=== PATIENT | female | born 1965 | race Asian ===

== ENCOUNTER 2021-10-16 07:37 | Outpatient (CLI) | payer BC, SELFPAY ==
--- NOTE | ~2021-10-16 | MM_ITS ---
EXAMINATION: MM screening [place] [facility] w [facility]ar HISTORY: Screening mammogram TECHNIQUE: Craniocaudal and mediolateral oblique 3-D tomosynthesis images were obtained and synthetic 2-D images were generated. CAD analysis was submitted and interpreted. COMPARISON: 01/19/2018, 01/29/2015, 09/05/2012 BREAST PARENCHYMAL COMPOSITION: There are scattered areas of fibroglandular density. FINDINGS: There is no suspicious mass, calcification, or architectural distortion to suggest malignan cy in either breast. There has been no suspicious interval change. IMPRESSION: 1. No mammographic evidence of malignancy. 2. Recommend routine screening mammography in one year. BI-RADS Category 1: Negative Reviewed, dictated and finalized at location A.
--- NOTE | ~2021-10-16 | DEXA_ITS ---
Bone Density Report Name: SHANTA GARG Age: 55 Sex: Female Ethnicity: Date of : 1965 Indication: postmenopausal; screening for osteoporosis; parental hip fracture; Referring Provider: MAHSA MELO Study: Bone densitometry was performed. Exam Date: October 16, 2021 Accession number: [id number] Bone Density: Region BMD T-score Z-score Classification AP Spine(L1-L4) 0.724 -2.9 -1.7 Osteoporosis Femoral Neck (Left) 0.560 -2.6 -1.5 Osteoporosis Total Hip (Left) 0.715 -1.9 -1.1 Osteopenia Femoral Neck (Right) 0.557 -2.6 -1.5 Osteoporosis Total Hip (Right) 0.733 -1.7 -0.9 Osteopenia Total Hip Mean 0.724 -1.8 -1.0 Osteopenia World Health Organization criteria for BMD impression classify patients as: Normal (T-score at or above -1.0), Osteopenia (T-score between -1.0 and -2.5), or Osteoporosis (T-score at or below -2.5). 10-year Fracture Risk: FRAX not reported because: Some T-score for Spine Total or Hip Total or Femoral Neck at or below -2.5 Clinical Information Provided by Patient: Parent has had a hip fracture Patient maximum height was 60 Menopause Age: 51 Drinks caffeinated beverages Onset of menses at age 15 Number of children 3 Impression: The patient has osteoporosis, based on the Total Spine T-score. The patient has risk factors, including: parental hip fracture. Discussion: INCREASED RISK OF FRACTURE. BONE DENSITY IS UNDESIRABLY LOW AT ONE OR MORE SKELETAL SITES, CONSISTENT WITH POSTMENOPAUSAL OSTEOPOROSIS. This patient's lowest T-score meets the World Health Organization's (WHO) criteria for osteoporosis at one or more sites (T-score -2.5 or below). In untreated patients, the risk of osteoporotic fracture increases approximately two-fold for each 1.0 SD decrease in T-score. Low bone density is not the only risk factor for fracture; also consider factors such as patient's age, frailty or poor health, risk of falling, risk of injury, previous osteoporotic fracture, family history of osteoporosis, cigarette smoking, low body weight, etc. Not everyone with low bone mineral density has osteoporosis; osteomalacia and other metabolic bone disorders should also be considered. Patients who have osteoporosis should be evaluated for specific diseases and conditions (secondary causes) that may cause or contribute to bone loss. The [place] [employer]ocrinologists (AACE) and National Osteoporosis Foundation (NOF) recommend pharmacologic intervention for all postmenopausal women whose T-score is in this range. The patient should follow a healthful lifestyle (good nutrition with adequate calcium and vitamin D, and appropriate weight-bearing exercise). Follow-Up: Consider a repeat BMD and Vertebral Fracture Assessment (VFA) exam in 2 years or sooner if medically nec
== END 2021-10-16 07:38 | disposition home or self-care (01) ==
PROVIDERS: PCP Family Medicine; Visit Provider Family Medicine
DX: Z12.31 Encounter for screening mammogram for malignant neoplasm of breast (principal); Z78.0 Asymptomatic menopausal state; Z82.62 Family history of osteoporosis; M81.0 Age-related osteoporosis without current pathological fracture; M85.852 Other specified disorders of bone density and structure, left thigh; M85.851 Other specified disorders of bone density and structure, right thigh
CPT/HCPCS: 77063; 77067; 77080

== ENCOUNTER 2022-08-20 12:31 | Outpatient (CLI) | payer BC, SELFPAY ==
[2022-08-20 16:40] LABS: Basophils Absolute Auto 0.1 K/mm3 (0.0-0.1); Basophils Percent Auto 1.3 % (0.2-1.2); Eosinophils Absolute Auto 0.1 K/mm3 (0-0.3); Hematocrit 44.1 % (37.0-47.0); Hemoglobin 14.4 g/dL (12.0-15.0); Immature Granulocyte Absolute 0.01 K/mm3 (0.00-0.031); Immature Granulocyte Percent A 0.2 % (0-0.5); Lymphocytes Absolute Auto 1.73 K/mm3 (0.9-3.2); Lymphocytes Percent Auto 38.1 % (18.3-44.2); Mean Corpuscular HGB Conc 32.7 g/dl (32-36); Mean Corpuscular Hemoglobin 30.8 pg (26-34); Mean Corpuscular Volume 94.2 fl (80-100); Mean Platelet Volume 10.3 fl (7.4-10.4); Monocytes Absolute Auto 0.3 K/mm3 (0.1-0.6); Monocytes Percent Auto 6.2 % (2.6-8.5); Neutrophils Absolute Auto 2.4 K/mm3 (1.3-6.7); Neutrophils Percent Auto 52.2 % (45.5-73.1); Platelet Count Result 273 k/mm3 (150-375); Red Blood Count 4.68 M/mm3 (4.2-5.4); Red Cell Distribution Width 12.1 % (11.5-14.5); White Blood Count 4.5 K/mm3 (4.5-10.0)
[2022-08-20 16:50] LABS: Anion Gap 6 mmol/L (8-16); Blood Urea Nitrogen 19 mg/dL (7-17); Calcium 8.6 mg/dL (8.4-10.2); Carbon Dioxide 30 mmol/L (22-30); Chloride 103 mmol/L (98-107); Cholesterol 263 mg/dL (0-200); Estimated Glomerular Filt Rate > 60; Glucose 87 mg/dL (65-110); HDL Direct 105 mg/dL; Potassium 4.3 mmol/L (3.4-5.0); Sodium 139 mmol/L (137-145); Triglycerides 108 mg/dL (<150)
[2022-08-20 17:00] LABS: LDL Cholesterol Direct 118 mg/dL
== END 2022-08-20 12:32 | disposition home or self-care (01) ==
LOC: ANHGOSHLAB 12:32
PROVIDERS: PCP Family Medicine; Visit Provider Nurse Practitioner Family
DX: E78.1 Pure hyperglyceridemia (principal); I10 Essential (primary) hypertension
CPT/HCPCS: 36415; 80048; 80061; 84443; 85025

== ENCOUNTER 2023-09-02 11:31 | Outpatient (CLI) | payer BC, SELFPAY ==
[2023-09-02 12:44] LABS: Basophils Percent Auto 0.6 % (0.2-1.2); Eosinophils Absolute Auto 0.1 K/mm3 (0-0.3); Eosinophils Percent Auto 1.1 % (0-4.4); Hematocrit 43.8 % (37.0-47.0); Hemoglobin 14.5 g/dL (12.0-15.0); Immature Granulocyte Absolute 0.02 K/mm3 (0.00-0.031); Immature Granulocyte Percent A 0.3 % (0-0.5); Lymphocytes Percent Auto 27.2 % (18.3-44.2); Mean Corpuscular HGB Conc 33.1 g/dl (32-36); Mean Corpuscular Hemoglobin 30.9 pg (26-34); Mean Corpuscular Volume 93.2 fl (80-100); Mean Platelet Volume 9.4 fl (7.4-10.4); Monocytes Absolute Auto 0.3 K/mm3 (0.1-0.6); Monocytes Percent Auto 4.7 % (2.6-8.5); Neutrophils Absolute Auto 4.4 K/mm3 (1.3-6.7); Neutrophils Percent Auto 66.1 % (45.5-73.1); Platelet Count Result 297 k/mm3 (150-375); Red Cell Distribution Width 11.9 % (11.5-14.5); White Blood Count 6.6 K/mm3 (4.5-10.0)
[2023-09-02 13:12] LABS: LDL Cholesterol Direct 136 mg/dL
[2023-09-02 13:13] LABS: Vitamin D 25 Hydroxy 55.5 ng/mL
[2023-09-02 13:14] LABS: Alanine Aminotransferase 26 U/L (6-35); Albumin Level 5.1 g/dL (3.5-5.1); Alkaline Phosphatase 94 U/L (38-126); Anion Gap 7 mmol/L (4-12); Aspartate Amino Transferase 63 U/L (14-36); Blood Urea Nitrogen 17 mg/dL (7-17); Calcium 8.8 mg/dL (8.4-10.2); Carbon Dioxide 30 mmol/L (22-30); Chloride 104 mmol/L (98-107); Cholesterol 280 mg/dL (0-200); Estimated Glomerular Filt Rate > 60; Glucose 93 mg/dL (65-110); HDL Direct 84 mg/dL; Potassium 4.3 mmol/L (3.4-5.0); Sodium 141 mmol/L (137-145); Triglycerides 206 mg/dL (<150)
== END 2023-09-02 11:32 | disposition home or self-care (01) ==
LOC: ANHGOSHLAB 11:32
PROVIDERS: PCP Family Medicine; Visit Provider Nurse Practitioner Family
DX: E55.9 Vitamin D deficiency, unspecified (principal); M81.0 Age-related osteoporosis without current pathological fracture; E78.1 Pure hyperglyceridemia; I10 Essential (primary) hypertension
CPT/HCPCS: 36415; 80053; 80061; 82306; 84443; 85025

== ENCOUNTER 2023-11-16 14:04 | Outpatient (CLI) | payer BC, SELFPAY ==
--- NOTE | ~2023-11-16 | DEXA_ITS ---
Bone Density Report Name: SHANTA GARG Age: 57 Sex: Female Ethnicity: Date of : 1965 Indication: postmenopausal osteoporosis; anorexia or bulimia; asthma or emphysema; hysterectomy; Referring Provider: LEN PHAN Study: Bone densitometry was performed. Exam Date: November 16, 2023 Accession number: [id number] Bone Density: Region BMD T-score Z-score Classification AP Spine(L1-L4) 0.800 -2.2 -0.9 Osteopenia Femoral Neck (Left) 0.535 -2.8 -1.6 Osteoporosis Total Hip (Left) 0.702 -2.0 -1.1 Osteopenia Femoral Neck (Right) 0.555 -2.6 -1.4 Osteoporosis Total Hip (Right) 0.722 -1.8 -0.9 Osteopenia Total Hip Mean 0.712 -1.9 -1.0 Osteopenia World Health Organization criteria for BMD impression classify patients as: Normal (T-score at or above -1.0), Osteopenia (T-score between -1.0 and -2.5), or Osteoporosis (T-score at or below -2.5). 10-year Fracture Risk: FRAX not reported because: Some T-score for Spine Total or Hip Total or Femoral Neck at or below -2.5 Previous Exams: Region Exam Age BMD T-score BMD Change BMD Change Date g/cm2 vs Baseline vs Previous AP Spine (L1-L4) 11/16/2023 57 0.800 -2.2 0.076 (10.4%)* 0.076 (10.4%)* 10/16/2021 55 0.724 -2.9 Total Hip(Left) 11/16/2023 57 0.702 -2.0 -0.013 (-1.8%) -0.013 (-1.8%) 10/16/2021 55 0.715 -1.9 Total Hip(Right) 11/16/2023 57 0.722 -1.8 -0.011 (-1.6%) -0.011 (-1.6%) 10/16/2021 55 0.733 -1.7 *Denotes significance at 95% confidence level, LSC for AP Spine = 0.022 g/cm2, LSC for Total Hip = 0.027 g/cm2 Clinical Information Provided by Patient: Has used the following medications: Fosamax (i.e. alendronate), Vitamin D, Calcium Has the following medical conditions: Anorexia or Bulimia, Asthma or Emphysema, Hysterectomy Patient maximum height was 60.0 Menopause Age: 51 Drinks caffeinated beverages Onset of menses at age 14 Number of children 3 Impression: The patient has osteoporosis, based on the Left Femoral Neck T-score. No significant bone loss was observed. Discussion: INCREASED RISK OF FRACTURE. BONE DENSITY IS UNDESIRABLY LOW AT ONE OR MORE SKELETAL SITES, CONSISTENT WITH POSTMENOPAUSAL OSTEOPOROSIS. This patient's lowest T-score meets the World Health Organization's (WHO) criteria for osteoporosis at one or more sites (T-score -2.5 or below). In untreated patients, the risk of osteoporotic fracture increases approximately two-fold for each
== END 2023-11-16 14:05 | disposition home or self-care (01) ==
LOC: ANHIMG 14:06
PROVIDERS: PCP Family Medicine; Visit Provider Nurse Practitioner Family
DX: M81.0 Age-related osteoporosis without current pathological fracture (principal); M85.88 Other specified disorders of bone density and structure, other site; M85.852 Other specified disorders of bone density and structure, left thigh; M85.851 Other specified disorders of bone density and structure, right thigh
CPT/HCPCS: 77080

== ENCOUNTER 2023-12-01 07:15 | Outpatient (CLI) | payer BC, SELFPAY ==
--- NOTE | ~2023-12-01 | MM_ITS ---
EXAMINATION: MM screening [facility] w [facility] HISTORY: Screening TECHNIQUE: Craniocaudal and mediolateral oblique 3-D tomosynthesis images were obtained and synthetic 2-D images were generated. CAD analysis was submitted and interpreted. COMPARISON: Comparison to multiple prior studies sequentially, with oldest reviewed study dated 01/06. BREAST PARENCHYMAL COMPOSITION: Dense: The breasts are heterogeneously dense, which may obscure small masses FINDINGS: There is no evidence of suspicious mass, calcification, or architectural distortion to sugg est malignancy in either breast. There has been no suspicious interval change. IMPRESSION: 1. No mammographic evidence of malignancy. 2. Recommend routine screening mammography in one year. BI-RADS Category 1: Negative Reviewed, dictated and finalized at location B.
== END 2023-12-01 07:16 | disposition home or self-care (01) ==
LOC: ANHIMG 07:16
PROVIDERS: PCP Family Medicine; Visit Provider Family Medicine
DX: Z12.31 Encounter for screening mammogram for malignant neoplasm of breast (principal)
CPT/HCPCS: 77063; 77067

== ENCOUNTER 2024-09-12 11:23 | Outpatient (CLI) | payer BC, SELFPAY ==
[2024-09-12 19:32] LABS: Hematocrit 42.1 % (37.0-47.0); Hemoglobin 13.9 g/dL (12.0-15.0); Immature Granulocyte Percent A 0.2 % (0-0.5); Lymphocytes Absolute Auto 1.48 K/mm3 (0.9-3.2); Mean Corpuscular HGB Conc 33.0 g/dl (32-36); Mean Corpuscular Hemoglobin 30.5 pg (26-34); Mean Corpuscular Volume 92.5 fl (80-100); Nucleated Red Blood Cells Absolute Auto 0.000 K/mm3 (0.0-0.012); Nucleated Red Blood Cells Perc 0.0 % (0.0-0.2); Platelet Count Result 303 k/mm3 (150-375); Red Blood Count 4.55 M/mm3 (4.2-5.4); White Blood Count 4.5 K/mm3 (4.5-10.0)
[2024-09-12 21:30] LABS: Alanine Aminotransferase 17 U/L (6-35); Albumin Level 4.5 g/dL (3.5-5.1); Alkaline Phosphatase 64 U/L (38-126); Anion Gap 8 mmol/L (4-12); Aspartate Amino Transferase 34 U/L (14-36); Bilirubin,Total 0.5 mg/dL (0.2-1.3); Blood Urea Nitrogen 17 mg/dL (7-17); Calcium 9.0 mg/dL (8.4-10.2); Carbon Dioxide 25 mmol/L (22-30); Chloride 105 mmol/L (98-107); Cholesterol 188 mg/dL (0-200); Estimated Glomerular Filt Rate > 60; Glucose 94 mg/dL (65-110); HDL Direct 86 mg/dL; Potassium 3.8 mmol/L (3.4-5.0); Sodium 138 mmol/L (137-145); Total Protein 7.0 g/dL (6.3-8.2); Triglycerides 111 mg/dL (<150)
[2024-09-12 22:03] LABS: Hemoglobin A1C 5.5 % (<5.7)
[2024-09-12 22:17] LABS: Thyroid Stimulating Hormone 0.155 uIU/mL (0.465-4.680)
== END 2024-09-12 11:24 | disposition home or self-care (01) ==
LOC: ANHGOSHLAB 11:26
PROVIDERS: PCP Family Medicine; Visit Provider Nurse Practitioner Family
DX: E78.1 Pure hyperglyceridemia (principal); I10 Essential (primary) hypertension; E55.9 Vitamin D deficiency, unspecified; M81.0 Age-related osteoporosis without current pathological fracture; R73.01 Impaired fasting glucose
CPT/HCPCS: 36415; 80053; 80061; 82306; 83036; 84443; 85025

== ENCOUNTER 2024-09-13 12:32 | Outpatient (CLI) | payer BC, SELFPAY ==
[2024-09-13 19:25] LABS: Thyroid Stimulating Hormone 0.103 uIU/mL (0.465-4.680)
== END 2024-09-13 12:33 | disposition home or self-care (01) ==
LOC: ANHGOSHLAB 12:33
PROVIDERS: PCP Family Medicine; Visit Provider Family Medicine
DX: E05.90 Thyrotoxicosis, unspecified without thyrotoxic crisis or storm (principal)
CPT/HCPCS: 36415; 84436; 84443; 84445; 86376

== ENCOUNTER 2025-02-19 11:20 | Outpatient (CLI) | payer BC, SELFPAY ==
[2025-02-19 11:47] LABS: Hematocrit 42.1 % (37.0-47.0); Hemoglobin 14.2 g/dL (12.0-15.0); Immature Granulocyte Percent A 0.2 % (0-0.5); Lymphocytes Absolute Auto 1.83 K/mm3 (0.9-3.2); Mean Corpuscular HGB Conc 33.7 g/dl (32-36); Mean Corpuscular Hemoglobin 31.6 pg (26-34); Mean Corpuscular Volume 93.6 fl (80-100); Nucleated Red Blood Cells Absolute Auto 0.000 K/mm3 (0.0-0.012); Nucleated Red Blood Cells Perc 0.0 % (0.0-0.2); Platelet Count Result 290 k/mm3 (150-375); Red Blood Count 4.50 M/mm3 (4.2-5.4); White Blood Count 6.3 K/mm3 (4.5-10.0)
== END 2025-02-19 11:21 | disposition home or self-care (01) ==
LOC: ANHSURGERY 11:24
PROVIDERS: PCP Family Medicine; Visit Provider Obstetrics & Gynecology
DX: D25.9 Leiomyoma of uterus, unspecified (principal)
CPT/HCPCS: 36415; 85025; 86850; 86900; 86901

== ENCOUNTER 2025-02-22 00:52 | Day surgery (SDC) | payer BC, SELFPAY ==
--- NOTE | 2025-02-19 07:19 | PM.IMHP2 ---
H&P: HPI History of Present Illness Date/Time: 02/19/25 07:19 Chief Complaint: Symptomatic fibroids Narrative: This is a of 59-year-old 3 para 3 female admitted for robotic hysterectomy secondary to recurrent high-grade dysplasia and symptomatic fibroids. She will undergo robotic hysterectomy bilateral salpingo-oophorectomy. Risks and benefits reviewed including but not exclusive of , aspiration pneumonia, bleeding, transfusion, perforation injury to bowel, bladder, ureters, or other internal organs with need for open laparotomy. She received the ACOG handout entitled hysterectomy as well as de Leonardo handout. She had all questions answered. She asked to proceed PMFSH Past Medical History Medical History Diverticulosis TYLER III with severe dysplasia Bitten by cat, initial encounter Winter itch Essential (primary) hypertension Iron deficiency anemia secondary to blood loss (chronic) Moderate cervical dysplasia Surgical History Surgical History History of appendectomy 1974 Family History Family History Father Hypertension, Onset Age: 40 Family history of cardiovascular disease Other Asthma Family history of malignant neoplasm of uterus Social History Social History Smoking status: Never smoker Alcohol intake: never Substance use: never Substance use type: does not use Lack of Transportation: No Lack of Food: Never True Current Housing: I Have Housing Concerned About Future Housing: No Difficulty Paying Gas/Electric Bills: No Difficulty Paying for Meds: No Currently Unemployed: No Difficulty w/ Childcare or Family Care: No Meds Home Medications and Allergies Home Medications ?Medication ?Instructions ?Recorded ?Confirmed ?Type fluticasone propionate 50 See Rx Instructions .Route 05/06/20 09/11/24 Rx mcg/actuation nasal .COMPLEX #16 grams spray,suspension biotin 1,000 mcg chewable tablet 1,000 mcg PO DAILY 09/02/23 09/11/24 History calcium 600 mg (as 2 cap PO DAILY 09/02/23 09/11/24 History carbonate)-vitamin D3 12.5 mcg (500 unit) capsule (Calcium with Vit D3) zinc gluconate 50 mg tablet 50 mg PO DAILY 09/02/23 09/11/24 History alendronate 70 mg tablet (Fosamax) 70 mg PO WEEKLY #13 tabs 09/11/24 09/11/24 Rx atorvastatin 10 mg tablet 10 mg PO QHS #90 tabs 11/26/24 Rx Allergies Allergy/AdvReac Type Severity Reaction Status Date / Time animal dander Allergy Unknown Cats Verified 09/11/24 13:21 egg Allergy Unknown Skin Verified 09/11/24 13:21 Reaction nut - unspecified Allergy Unknown Skin Verified 09/11/24 13:21 Reaction Cashew Allergy Intermediate MOUTH Uncoded 09/11/24 13:21 SWELLING EGGS Allergy Intermediate HIVES Uncoded 09/11/24 13:21 FISH Allergy Intermediate HIVES Uncoded 09/11/24 13:21 PEANUTS Allergy Intermediate SWELLING Uncoded 09/11/24 13:21 SARDINES Allergy Intermediate HIVES Uncoded 09/11/24 13:21 Exam Const: General: cooperative, healthy appearing, comfortable, well groomed and average body habitus Orientation/consciousness: oriented to person, oriented to place and oriented to time HENMT: Head: normal to inspection Resp: Effort & Inspection: normal respiratory effort Cardio: Rate: regular rate Rhythm: regular rhythm Heart sounds: S1 normal heart sound present and S2 normal heart sound present GI: Inspection: normal to inspection : External Female Exam: normal external appearance Speculum Exam - Vagina: normal appearance of the vagina Speculum Exam - Cervix: normal appearance of the cervix Bimanual exam- vagina & uterus: enlarged and Uterine tenderness Assessment and Plan Assessment and plan (1) High grade squamous intraepithelial cervical dysplasia: Code(s): R87.613 - High grade squamous intraepithelial lesion on cytologic smear of cervix (HGSIL) Status: Acute (2) Uterine fibroid: Code(s): D25.9 - Leiomyoma of uterus, unspecified Status: Acute Plan Proceed with robotic total vaginal hysterectomy and bilateral salpingo-oophorectomy
--- NOTE | 2025-02-19 09:47 | PC.NURSE ---
[facility] has started construction of its new state of the art ER which will open Spring 2026. With this, we anticipate parking may be a challenge for some our surgical patients and families. Parking spaces are limited but are available for all Surgical, obstetrics, and ER patients sharing this lot. If you arrive and find you are having a hard time finding a parking space, please note that we understand the challenges, please drive around the hospital and park near Hospital Entrance 1. When you enter this entrance, you can ask a volunteer to direct or take you back to the surgical waiting area to check in. We appreciate everyone?s understanding of these expected challenges while we build for your future. Report to the Outpatient Waiting Room, entrance under the green pavilion located off [address], at time _6:00AM on date _02-22-2025 . Planned Procedure Time: __7:30AM .? Time changes happen often and if your time is changed the preop area will call you the afternoon before. - You and your visitor will be asked to self-screen and do not enter if you have any COVID symptoms. Please call surgeon if you need to reschedule. - A mask is optional within the hospital at this time. Patients may have clear liquids (water, carbonated beverages, clear teas, apple juice) until 3 hours prior to surgery with a maximum of 20 ounces. STOP AT 4:30 AM - No food from midnight until time of surgery and no smoking, or chewing tobacco (or any form of nicotine). No chewing gum, candy or mints. Take only the following medications with a SIP of water on the morning of surgery: N/A DO NOT STOP ANY OF YOUR OTHER PRESCRIPTION MEDICATIONS PRIOR TO SURGERY EXCEPT THE FOLLOWING Hold all vitamins and supplements for 3 days per anesthesiologist. Please no make-up, nail panamanian, hairspray, perfume, deodorant, or body powder the day of surgery.? No jewelry (including any body piercings) or valuables the day of surgery, leave them at home.? Please take a shower or bath the night before, or the morning of, surgery with an antibacterial soap.? Wear comfortable, loose fitting clothing.? - Jewelry must be removed prior to entering the operating room.? Rings and piercings that are not removed may be cut off. - The hospital will not accept responsibility for valuables.? - Please leave all valuables, including medications, at home the day of surgery. If you are going home after surgery, a licensed cattle driver must drive you home.? - NO public transportation without another adult if you receive anesthesia. - We recommend that an adult stay with you for 24 hours following discharge. - We also recommend that you do not drive, make important decision, drink alcoholic beverages, or take any drugs that were not prescribed by your health care provider for at least 24 hours after your discharge time. Follow any additional instructions given to you from your surgeon. Telephone instructions given to _SHANTA (PATIENT) and asked if any additional questions and then verbalized understanding. Patient advised to call surgeon office or pre surgery nurse liaison [phone] if any additional questions.
[2025-02-19 09:58] VITALS: BMI 19.5
[2025-02-22] VITALS (10 sets, daily range): BP systolic 135–176; BP diastolic 75–89; PULSE 60–80; RESP 10–16; TEMP 36.3–36.7; O2SAT 99–100
--- NOTE | 2025-02-22 06:07 | WPDHPUPDATE1 ---
History and Physical Update Update Date/Time: 02/22/25 06:07 History and Physical has been reviewed, including an updated exam of the patient. There are NO changes in the patient's condition. Risks, benefits, and alternatives have been discussed and questions answered. Patient agrees to proceed with procedure.
--- NOTE | 2025-02-22 06:19 | ECG_ITS ---
Test Date: 2025-02-22 07:01:44 Measurements Intervals [place] Rate: 59 P: 70 SC: 148 QRS: 36 QRSD: 79 T: 42 QT: 446 QTc: 444 Interpretive Statements SINUS BRADYCARDIA EARLY PRECORDIAL R/S TRANSITION BORDERLINE ECG No previous ECG available for comparison Electronically Signed On 02-22-2025 08:42:30 COOLER WORKER by Escobar Gonzales D.O.
[2025-02-22] MEDS: ACETAMINOPHEN 500 MG TABLET 1000 MG PO ×2 (06:30→15:15)
[2025-02-22] MEDS: LACTATED RINGERS 1,000 ML 30 ML IV CONT ×2 (06:30→09:09)
[2025-02-22] MEDS: KETOROLAC 15 MG/ML VIAL (*BKC) IV PUSH (06:30)
--- NOTE | 2025-02-22 06:47 | WPDANESEPPF ---
Anes - Initial Pre Proc Eval Procedure: Operation Date: 02/22/25 07:30 Proposed Procedures p Robotic Assisted Total Vaginal Hysterectomy with Bilateral Salpingo-oophorectomy - Abhinav Savage MD Date/Time: 02/22/25 06:47 Surgeon: Abhinav Savage MD Pre Op Diagnosis: abnormal pap smear, Hi-Grade Rolan Patient Data Age: 59 Gender: F Height: 1.52 m Weight: 45.35 kg Allergies Allergy/AdvReac Type Severity Reaction Status Date / Time amoxicillin Allergy Intermediate Rash Verified 02/19/25 10:01 animal dander Allergy Unknown Cats Verified 02/19/25 10:01 egg Allergy Unknown Skin Verified 02/19/25 10:01 Reaction nut - unspecified Allergy Unknown Skin Verified 02/19/25 10:01 Reaction Cashew Allergy Intermediate MOUTH Uncoded 09/11/24 13:21 SWELLING EGGS Allergy Intermediate HIVES Uncoded 09/11/24 13:21 FISH Allergy Intermediate HIVES Uncoded 09/11/24 13:21 PEANUTS Allergy Intermediate SWELLING Uncoded 09/11/24 13:21 SARDINES Allergy Intermediate HIVES Uncoded 09/11/24 13:21 Home Medications ?Medication ?Instructions ?Recorded ?Confirmed ?Type fluticasone propionate 50 See Rx Instructions .Route 05/06/20 02/19/25 Rx mcg/actuation nasal .COMPLEX #16 grams spray,suspension biotin 1,000 mcg chewable tablet 1,000 mcg PO DAILY 09/02/23 02/19/25 History calcium 600 mg (as 2 cap PO DAILY 09/02/23 02/19/25 History carbonate)-vitamin D3 12.5 mcg (500 unit) capsule (Calcium with Vit D3) zinc gluconate 50 mg tablet 50 mg PO DAILY 09/02/23 02/19/25 History alendronate 70 mg tablet (Fosamax) 70 mg PO WEEKLY #13 tabs 09/11/24 02/19/25 Rx atorvastatin 10 mg tablet 10 mg PO QHS #90 tabs 11/26/24 02/19/25 Rx hydrocodone 5 mg-acetaminophen 325 1 tablet PO Q4H PRN pain #20 tabs 02/22/25 Rx mg tablet Patient hx anesthesia problems: none Family hx anesthesia problems: none Results Review: All pre-operative results and documents have been reviewed as part of the pre-operative evaluation. [facility] Past Medical History Medical History Diverticulosis TYLER III with severe dysplasia Bitten by cat, initial encounter Winter itch Essential (primary) hypertension Iron deficiency anemia secondary to blood loss (chronic) Moderate cervical dysplasia Surgical History Surgical History History of appendectomy 1974 Family History Family History Father Hypertension, Onset Age: 40 Family history of cardiovascular disease Other Asthma Family history of malignant neoplasm of uterus Social History Social History Smoking status: Never smoker Second hand tobacco smoke exposure: No Alcohol intake: never Substance use: never Substance use type: does not use Lack of Transportation: No Lack of Food: Never True Current Housing: I Have Housing Concerned About Future Housing: No Difficulty Paying Gas/Electric Bills: No Difficulty Paying for Meds: No Currently Unemployed: No Difficulty w/ Childcare or Family Care: No Living arrangements: with family Spiritual care concerns: No Anes - Eval Final PreProcedure Day of Procedure 02/22/25 06:47 Patient weight: normal Lungs: normal air movement Airway: Mallampati scale class II and special considerations ([place] bridge. ) Neurological: alert and oriented Last oral intake: >/= 8 hours ASA classification: II Emergent: no Anesthetic plan: proceed Anesthesia type and monitoring: general ETT and standard monitoring Results Review: All pre-operative results and documents have been reviewed as part of the pre-operative evaluation. Hyperlipidemia, active w walking most days, no cp or sob. Informed Consent: The patient's anesthetic plan and its attendant risks and benefits were discussed with the patient/family/POA. Questions were solicited and answers provided to the satisfaction of the patient/family/POA.
[2025-02-22] MEDS: ceFAZolin 2 GM in SODIUM CHLORIDE 0.9% IV 50 ML 100 ML IVPB (07:29)
--- NOTE | 2025-02-22 08:24 | S_PTH ---
PATIENT: Basia Mares LOC: [facility] U#:[id number] AGE/SX: 59/F ROOM: RE02/22/[address]: Abhinav Savage MD : 1965 BED: DIS: 02/22/2025 SPEC #: [id number] RECD: 02/22/25 11:29 STATUS: JUAN REQ #: [id number] ROSAMARIA: 02/22/25 08:[address]: Abhinav De Anda DEPT: [facility] Surgical RECD BY: Olimpia Conte ENTERED: 02/22/25 11:30 SP TYPE: Surgical OTHR DR: Shahzad Palmer MD Tissues: A - Uterus Procedures: Hematoxylin and Eosin Stain Gross and Microscopic Level 5
--- NOTE | 2025-02-22 08:52 | W.PM.PROC2 ---
Procedure Note - Detailed Date of Procedure 02/22/25 Pre-op Diagnosis abnormal pap smear, Hi-Grade Rolan Post-op Diagnosis Same Procedure Performed Robotic total vaginal hysterectomy and bilateral salpingo-oophorectomy Surgeon Abhinav Savage MD Anesthesia General Indications 59-year-old female with recurrent high-grade squamous intraepithelial lesion and a uterine fibroid Findings Small uterus with a fibroid. Description of Procedure Patient was prepped draped in normal sterile fashion placed in dorsal position. Excellent general trach anesthesia weighted speculum placed in posterior fornix vagina anterior lip of the cervix grasped with a single-tooth tenaculum and the uterus sounded to size 7cm. Serial dilatation fragmented dilators performed followed by passage of the 6. JORDYN and the 2. 0.5 cold cup. Vagina was noted be small was a difficult procedure risks of the cervix was quite flush with the vagina. Sixteen [place] Helen[place] catheter was placed in the bladder and the bladder drained clear urine the weighted speculum was removed and the gloves were changed supraumbilical incision made the Veress needle passed in the. Abdomen filled with CO2 gas [id number]. The 8mm trocar advanced in the abdomen. Downside visualized no injury seen. Patient placed in Trendelenburg and 20? and right left lateral quadrant incision made. 8mm trocars advanced under direct visualization assuring no injury a right upper quadrant incision made the 8mm trocar advanced under direct visualization assuring no injury. The robot was docked. Attention was turned to the certified alcohol counselor. The uterus was noted to be small but had a uterine fibroid present. Left round ligament was grasped, burned, cut. Anteriorly a bladder flap was formed by sharply dissecting peritoneum and reflecting the bladder caudally away to opposite round ligament which was clamped, burned, cut. Next the left infundibulopelvic structure was skeletonized to remove the left ovary and tube this was clamped, burned, cut brought to level of previously cut round round ligament. In similar fashion removed the right adnexa, the infundibulopelvic structure was skeletonized clamping, burning, cutting until reaching the uterine round ligament. The left cardinal broad ligaments were then skeletonized clamping burning cutting and bringing this down the lateral edge of the uterus and cervix until the uterine vessels could be seen on the left these were individually clamped, burned, cut. In similar fashion on the right the cardinal broad ligaments were serially skeletonized clamping burning cutting and hugging the cervix and uterus until the uterine vessels could be seen on the right these were individually clamped, burned, cut. Blanching of the uterus was noted and the colpotomy incision made cervix uterus ovaries and tubes removed through the vagina. It was noted that there was some small bleeding inside the vagina at that point and laparoscopically it appeared that instrument had made a small tear which was bleeding. As the vagina was small and was not felt like this could be repaired from the inside it was cauterized. This was followed by putting Surgiflo over the top of that an excellent hemostasis was noted at that point. The vagina was then closed with continuous running 0V lock from lateral edge to lateral edge back to the midline. Irrigation undertaken until clear and Laila was placed over the raw surface area blood loss was estimated at50cc. The instruments withdrawn. The gas removed from the abdomen. The trocars removed and the incisions closed with 4 Monocryl and glue. Patient went recovery in satisfactory condition. All sponge, needle, instrument counts were correct. There were no immediate complication Estimated Blood Loss 50 Drains No Packing No Pathology Yes Complications No immediate complications Condition Stable Disposition PACU
--- NOTE | 2025-02-22 08:57 | PM.DS ---
DS: Admitting Diagnosis Discharge Date 02/22/2025 Admitting Diagnosis Recurrent high-grade dysplasia DS: Discharge Diagnosis Discharge Diagnosis (1) High grade squamous intraepithelial cervical dysplasia: Code(s): R87.613 - High grade squamous intraepithelial lesion on cytologic smear of cervix (HGSIL) Status: Acute (2) Uterine fibroid: Code(s): D25.9 - Leiomyoma of uterus, unspecified Status: Acute DS: Summary Hospital Course Reason for hospitalization: Patient underwent robotic total vaginal hysterectomy bilateral salpingo-oophorectomy on Hospital Course: Patient's hospital course unremarkable. She remained afebrile. She was up, voiding without difficulty, eating regular diet, ambulating, and generally without. Time Spent with Patient Time attestation: Total time spent providing and/or coordinating discharge services: Exam Const: General: cooperative, healthy appearing, comfortable, well groomed and average body habitus Orientation/consciousness: oriented to person, oriented to place and oriented to time HENMT: Head: normal to inspection Resp: Effort & Inspection: normal respiratory effort Cardio: Rate: regular rate Rhythm: regular rhythm Heart sounds: S1 normal heart sound present and S2 normal heart sound present GI: Inspection: normal to inspection : External Female Exam: normal external appearance Speculum Exam - Vagina: normal appearance of the vagina Speculum Exam - Cervix: normal appearance of the cervix Bimanual exam- vagina & uterus: enlarged and Uterine tenderness DS: Data Data Completed and Pending Pending studies at discharge: Pending at discharge 02/22/25 08:24 Surgical [PTH] Routine Discharge Plan Discharge Patient Disposition: Home Patient Instructions: Laparoscopic Hysterectomy (DC) Patient Language: Macedonian Stand Alone Forms: General Discharge Instructions Follow-up/Referrals: Abhinav De Anda MD [Physician, DIRECTOR OF [employer]MAIL MARKETING] Discharge Medications: New hydrocodone-acetaminophen 5-325 mg tablet 1 tablet PO Q4H PRN (Reason: pain) Qty: 20 0RF No Action calcium carbonate-vitamin D3 [Calcium 600 with Vitamin D3] 600 mg-12.5 mcg (500 unit) capsule 2 cap PO DAILY zinc gluconate 50 mg tablet 50 mg PO DAILY biotin 1,000 mcg tablet,chewable 1,000 mcg PO DAILY alendronate [Fosamax] 70 mg tablet 70 mg PO WEEKLY Qty: 13 2RF Rx Instructions: take on empty stomach, do no lay down for 1 hour after taking. fluticasone propionate 50 mcg/actuation spray,suspension See Rx Instructions .ROUTE .COMPLEX Qty: 16 5RF Dose Instruction: USE 2 SPRAYS IN EACH NOSTRIL DAILY Rx Instructions: USE 2 SPRAYS IN EACH NOSTRIL DAILY atorvastatin 10 mg tablet 10 mg PO QHS Qty: 90 1RF
[2025-02-22] MEDS: fentaNYL CITRATE INJ (*CRX) 100 MCG/2 ML VIAL 25 MCG IV PUSH ×4 (09:23→09:43)
--- NOTE | 2025-02-22 10:27 | PC.NURSE ---
This patient, Basia Wilks July, was received from [PACU per bed to room 289]. Patient/family oriented to unit policies and routines
[2025-02-22] MEDS: KETOROLAC 30 MG/ML VIAL (*BKC) IV PUSH (15:15)
== END 2025-02-22 17:33 | disposition home or self-care (01) ==
LOC: ANHSURGERY 06:08 → ANHOB2 10:25
PROVIDERS: PCP Family Medicine; Visit Provider Obstetrics & Gynecology
PROC: (CPT 58552; principal; 2025-02-22 07:30)
DX: R87.613 High grade squamous intraepithelial lesion on cytologic smear of cervix (HGSIL) (principal); D25.1 Intramural leiomyoma of uterus; N84.0 Polyp of corpus uteri; I10 Essential (primary) hypertension; E78.5 Hyperlipidemia, unspecified; D50.0 Iron deficiency anemia secondary to blood loss (chronic); Z79.83 Long term (current) use of bisphosphonates; Z79.891 Long term (current) use of opiate analgesic; Z98.890 Other specified postprocedural states; Z87.19 Personal history of other diseases of the digestive system; Z80.49 Family history of malignant neoplasm of other genital organs; Z82.49 Family history of ischemic heart disease and other diseases of the circulatory system
CPT/HCPCS: 58552; S2900; 88307; 93005; J0690; A9270; J1100; J1885; J2250; J2405; J2704; J3010; J7030; J7120